=== PATIENT | male | born 1980 | race Hispanic/Latino ===

== ENCOUNTER 2016-10-23 20:35 | Emergency (ER) | payer SELFPAY ==
[~2016-10-23] VITALS: Ht 157.5 cm; Wt 56.8 kg
[2016-10-23 20:39] VITALS: BP 115/74; PULSE 74; RESP 16; O2SAT 99
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
[2016-10-23] MEDS ORDERED: TdaP Vaccine 0.5 mL Inj IM ONE (21:15)
--- NOTE | 2016-10-23 21:27 | DRSVH ---
PROCEDURE: X-RAY RIGHT HAND, MINIMUM THREE VIEWS ([id number]) INDICATIONS: deformity TECHNIQUE: 3 views of the hand(s) acquired. COMPARISON: None. FINDINGS: Bones: No dislocations. Carpal bones are normally aligned. No suspicious bony lesions. There is a diagonal fracture involving the distal phalanx of the thumb. Note is made of unusual morphology of the radiocarpal and adjacent articulations, long-standing in appearance, where old trauma or avascula r necrosis or even surgical intervention may have occurred. Much of the proximal carpal row is absen t. Soft tissues: No suspicious soft tissue calcifications. IMPRESSION: Acute fracture distal phalanx of the thumb. Chronic appearing distortion of the wrist w ith absence of much of the proximal carpal row. Please correlate clinically. Dictated by: Kevin Nina M.D. on 10/23/2016 at 21:24 Approved by: Kevin Nina M.D. on 10/23/2016 at 21:26
[2016-10-23] MEDS ORDERED: CEPH-512 PO (21:59)
[2016-10-23] MEDS ORDERED: IBUP-1827 PO (21:59)
[2016-10-23] MEDS ORDERED: TRAM50TA2 PO (21:59)
[2016-10-23 22:59] VITALS: BP 118/68; PULSE 72; RESP 16; O2SAT 99
== END 2016-10-23 23:00 | disposition home or self-care (01) ==
LOC: SED 20:35
DX: S62.524B Nondisplaced fracture of distal phalanx of right thumb, initial encounter for open fracture (principal); W22.8XXA Striking against or struck by other objects, initial encounter; Y93.89 Activity, other specified; Y92.9 Unspecified place or not applicable; Y99.8 Other external cause status; Z23 Encounter for immunization
CPT/HCPCS: 29125; 73130; 90471; 90715; 96372; 99284; J1885